=== PATIENT | female | born 1950 | race Caucasian/White ===

== ENCOUNTER 2021-08-12 12:16 | Observation (INO) | payer MEDICARE ==
[~2021-08-12] VITALS: Ht 162.6 cm; Wt 55.8 kg
[2021-08-12] VITALS (9 sets, daily range): BP systolic 115–199; BP diastolic 56–94
[~2021-08-12 12:16] MED LIST: AMLODIPINE BESY10 MG PO; ASPIRIN EC81 MG PO; CLOPIDOGREL75 MG PO; LISINOPRIL10 MG PO; PANTOPRAZOLE SO40 MG PO
[2021-08-12] MEDS ORDERED: MIDAZOLAM HCL 2 MG/2 ML VIAL ONE ×3 (15:12→17:17)
[2021-08-12] MEDS ORDERED: IOPAMIDOL 300MG/ML 100 ML INFUS..BTL IV ONE (15:13)
[2021-08-12] MEDS ORDERED: LIDOCAINE HCL 2% LOCAL 20 ML VIAL ONE (15:13)
[2021-08-12] MEDS ORDERED: FENTANYL CITRATE/PF 100MCG/2 ML INJ ONE ×2 (15:13→17:18)
[2021-08-12] MEDS ORDERED: SODIUM CHLORIDE 0.9% 1000ML 1,000 ML ONE ×2 (15:13→16:11)
[2021-08-12] MEDS ORDERED: HEPARIN SOD/SOD CHLORIDE 2,000 ML ONE (15:13)
[2021-08-12] MEDS ORDERED: VERAPAMIL HCL 2.5 MG/ML 2 ML VIAL ONE (16:11)
[2021-08-12] MEDS ORDERED: ASPIRIN 325 MG TAB ONE (16:25)
[2021-08-12] MEDS ORDERED: TICAGRELOR 90 MG TABLET ONE (16:25)
[2021-08-12] MEDS ORDERED: ATROPINE SULFATE 0.1 MG/ML 10ML SYR ONE (20:54)
[2021-08-13] VITALS (8 sets, daily range): BP systolic 115–134; BP diastolic 61–83
== END 2021-08-13 11:39 | disposition home or self-care (01) ==
LOC: CATH LAB 12:16 → ICU 19:14 → INTOOBSV 19:14
PROVIDERS: ADMIT Internal Medicine Cardiovascular Disease; ATTEND Internal Medicine Cardiovascular Disease
DX: I70.212 Atherosclerosis of native arteries of extremities with intermittent claudication, left leg (principal); Z95.820 Peripheral vascular angioplasty status with implants and grafts; I25.10 Atherosclerotic heart disease of native coronary artery without angina pectoris; I10 Essential (primary) hypertension; Z88.0 Allergy status to penicillin; Z01.812 Encounter for preprocedural laboratory examination; Z20.822 Contact with and (suspected) exposure to COVID-19; Z79.02 Long term (current) use of antithrombotics/antiplatelets; Z79.82 Long term (current) use of aspirin; Z82.49 Family history of ischemic heart disease and other diseases of the circulatory system
CPT/HCPCS: 37227; 75710; 76937; C1724; C1725; C1766; C1769 ×3; C1887 ×2; C2623 ×4; G0378 ×2; J2001; J2250; J3010; J7030; Q9967; U0002; 36247; 37224; 37226; 99152; 99153